=== PATIENT | female | born 1955 | race Caucasian/White ===

== ENCOUNTER → 2017-03-16 | Outpatient (CLI) | payer OTHER | LOC: FIMAGING 13:11 | PROVIDERS: ATTEND Physician Assistant Medical | DX: Z12.39 Encounter for other screening for malignant neoplasm of breast (principal); N63 Unspecified lump in breast | CPT/HCPCS: G0204 ==

== ENCOUNTER → 2017-03-23 | Outpatient (CLI) | payer OTHER ==
[~2017-03-23] MED LIST: BUPIVACAINE 0.5% 10 ML SDV ONE; LIDO/EPI 1% **Not for Epidural 20 ML MDV ONE; LIDOCAINE 1% 30 ML SDV ONE; NA BICARBONATE 50 MEQ/50 ML VIAL ONE; THROMBIN (BOVINE) 5,000 UNIT VIAL TP ONE
== END ==
LOC: FIMAGING 07:26
PROVIDERS: ATTEND Physician Assistant Medical
PROC: 0HBT3ZX Excision of Right Breast, Percutaneous Approach, Diagnostic (ICD-10-PCS; principal; 2017-03-23)
DX: C50.911 Malignant neoplasm of unspecified site of right female breast (principal)
CPT/HCPCS: G0206

== ENCOUNTER → 2017-05-05 | Outpatient (CLI) | payer OTHER ==
[~2017-05-05] MED LIST changes: -BUPIVACAINE 0.5% 10 ML SDV ONE; +GADOBUTROL 10 ML VIAL IVP ONE; -LIDO/EPI 1% **Not for Epidural 20 ML MDV ONE; -LIDOCAINE 1% 30 ML SDV ONE; -NA BICARBONATE 50 MEQ/50 ML VIAL ONE; -THROMBIN (BOVINE) 5,000 UNIT VIAL TP ONE
== END ==
LOC: FIMAGING 12:04
PROVIDERS: ATTEND Internal Medicine Hematology & Oncology
DX: C50.311 Malignant neoplasm of lower-inner quadrant of right female breast (principal); Z95.0 Presence of cardiac pacemaker
CPT/HCPCS: 0159T; 77059; A9585; C8908

== ENCOUNTER → 2018-04-25 | Outpatient (CLI) | payer OTHER | LOC: FIMAGING 15:03 | PROVIDERS: ATTEND Internal Medicine Hematology & Oncology | DX: M50.31 Other cervical disc degeneration, high cervical region (principal); M50.321 Other cervical disc degeneration at C4-C5 level; M50.322 Other cervical disc degeneration at C5-C6 level; M50.323 Other cervical disc degeneration at C6-C7 level; M12.88 Other specific arthropathies, not elsewhere classified, other specified site; M48.02 Spinal stenosis, cervical region; M99.71 Connective tissue and disc stenosis of intervertebral foramina of cervical region; R60.0 Localized edema; M51.36 Other intervertebral disc degeneration, lumbar region; M48.061 Spinal stenosis, lumbar region without neurogenic claudication; M51.26 Other intervertebral disc displacement, lumbar region; M51.24 Other intervertebral disc displacement, thoracic region; C50.919 Malignant neoplasm of unspecified site of unspecified female breast | CPT/HCPCS: A9585 ==

== ENCOUNTER → 2018-05-09 | Outpatient (CLI) | payer OTHER | LOC: FIMAGING 08:27 | DX: C50.311 Malignant neoplasm of lower-inner quadrant of right female breast (principal) ==

== ENCOUNTER → 2018-10-05 | Outpatient (CLI) | payer OTHER ==
[~2018-10-05] MED LIST changes: -GADOBUTROL 10 ML VIAL IVP ONE; +IOPAMIDOL (ISOVUE-300) 100 ML BTL ONE
== END ==
LOC: FIMAGING 15:53
DX: Z12.89 Encounter for screening for malignant neoplasm of other sites (principal); M51.36 Other intervertebral disc degeneration, lumbar region; M47.896 Other spondylosis, lumbar region; Z85.3 Personal history of malignant neoplasm of breast
CPT/HCPCS: Q9967

== ENCOUNTER → 2018-10-10 | Outpatient (CLI) | payer OTHER | LOC: FIMAGING 09:39 | DX: C50.311 Malignant neoplasm of lower-inner quadrant of right female breast (principal); R93.89 Abnormal findings on diagnostic imaging of other specified body structures | CPT/HCPCS: 78306; A9503 ==

== ENCOUNTER → 2018-12-23 | Outpatient (CLI) | payer OTHER ==
[~2018-12-23] MED LIST changes: +IOPAMIDOL (ISOVUE 370) 100 ML BTL IV ONE; -IOPAMIDOL (ISOVUE-300) 100 ML BTL ONE
== END ==
LOC: FIMAGING 13:42
PROVIDERS: ATTEND Internal Medicine Cardiovascular Disease
DX: R06.02 Shortness of breath (principal); M89.8X8 Other specified disorders of bone, other site; Z79.811 Long term (current) use of aromatase inhibitors
CPT/HCPCS: Q9967

== ENCOUNTER 2019-05-01 16:56 | Emergency (ER) | payer OTHER, MEDICARE | END 2019-05-01 17:32 | disposition home or self-care (01) | LOC: CED 16:56 ==